=== PATIENT | female | born 1995 | race Caucasian/White ===

== ENCOUNTER 2019-08-28 13:30 | Emergency (ER) | payer OTHER ==
[~2019-08-28] VITALS: Ht 160 cm; Wt 108.8 kg
[2019-08-28] MEDS ORDERED: FLUO20CA23 PO (14:11)
[2019-08-28] MEDS ORDERED: TRAZ50TA66 PO (14:11)
[2019-08-28] MEDS ORDERED: SPIR50TA4 PO (14:11)
[2019-08-28] MEDS ORDERED: ERGO500017 PO (14:11)
--- NOTE | 2019-08-28 14:38 | NUR ---
BREAK RN: AMARA CRUZ AT BEDSIDE. PT ASSESSMENT, POC DISCUSSED AND QUESTIONS ANSWERED. ORDERS REC'D.
[2019-08-28 14:52] LABS: BASOPHILS % (AUTO) 1 % (0-1); EOSINOPHILS # (AUTO) 0.22 x10^3/uL (0-0.4); EOSINOPHILS % (AUTO) 2 % (1-7); LYMPHOCYTES # (AUTO) 2.03 x10^3/uL (1-3.4); LYMPHOCYTES % (AUTO) 22 % (22-44); MD NO; MEAN CORPUSCULAR HEMOGLOBIN 31.5 pg (27.0-34.8); MEAN CORPUSCULAR HGB CONC 35.4 g/dL (32.4-35.8); MEAN CORPUSCULAR VOLUME 88.9 fL (80-100); MEAN PLATELET VOLUME 8.2 fL (7.4-10.4); MONOCYTES # (AUTO) 0.61 x10^3/uL (0.2-0.8); MONOCYTES % (AUTO) 7 % (2-9); NEUTROPHILS # (AUTO) 6.37 x10^3/uL (1.8-6.8); NEUTROPHILS % (AUTO) 68 % (42-75); PLATELET COUNT 210 x10^3/uL (130-400); RED BLOOD COUNT 3.79 x10^6/uL (3.82-5.3); RED CELL DISTRIBUTION WIDTH 14.2 % (9.6-15.2)
--- NOTE | 2019-08-28 14:56 | NUR ---
US IN ROOM.
[2019-08-28 15:01] LABS: ALBUMIN 3.4 g/dL (3.4-5.0); ANION GAP 7 mmol/L (5-15); CALCIUM 8.5 mg/dL (8.5-10.1); CHLORIDE 112 mmol/L (98-107); CREATININE 0.59 mg/dL (0.55-1.02)
[2019-08-28 15:27] VITALS: BP 145/72
--- NOTE | 2019-08-28 15:28 | NUR ---
PT RESTING ON Flux W/ CALL LIGHT IN REACH, VSS, NADN. AWAITING RESULTS.
--- NOTE | 2019-08-28 16:36 | NUR ---
Patient given discharge instructions and they have confirmed that they understand the instructions. Patient ambulatory with steady gait.
== END 2019-08-28 16:37 | disposition home or self-care (01) ==
LOC: ED 14:15
DX: N93.8 Other specified abnormal uterine and vaginal bleeding (principal)
CPT/HCPCS: 36415; 76830; 80048; 82040; 84703; 85025; 99284